=== PATIENT | male | born 1945 | race Caucasian/White ===

== ENCOUNTER 2022-04-23 07:28 | Day surgery (SDC) | payer OTHER ==
[2022-04-22 15:49] LABS: Absolute Lymphocytes (CBC) 2.6 K/uL (0.7-4.9); Hematocrit 42.2 % (39.6-49.0); Lymphocytes % 34.1 % (15.3-44.8); MCV 88.1 fL (80-100); RBC Red Blood Cell Count 4.79 M/uL (4.33-5.43)
[2022-04-22 16:03] LABS: Potassium 4.1 mmol/L (3.5-5.1)
[2022-04-22 16:08] LABS: SARS-CoV-2 Antigen Rapid Res Negative (Negative)
--- NOTE | 2022-04-22 16:09 | RAD REPORT ---
EXAM DESCRIPTION: RAD - Chest Pa And Lat (2 Views) - 04/22/2022 3:47 pm CLINICAL HISTORY: Pre op pending hernia surgery COMPARISON: None TECHNIQUE: Frontal and lateral views of the chest were obtained. FINDINGS: The lungs are clear of a focal mass or consolidation. Interstitial markings are prominent in the lower lung ramos probably baseline fibrosis. Bulla and bleb formation of the upper lung field s evident. Heart size is normal and central vasculature is within normal limits. No pleural effusi on or pneumothorax seen. No acute bony finding noted. No aortic abnormality. IMPRESSION: COPD changes are present as detailed. No acute cardiopulmonary finding.
[2022-04-23] MEDS ORDERED: Ringers Lactate 1,000 ML IV ONE (07:42)
[2022-04-23] MEDS ORDERED: LIDOCAINE 1% MPF 5 ML VIAL ONE (08:33)
[2022-04-23] MEDS ORDERED: CELECOXIB 100 MG CAPSULE ONE (08:33)
[2022-04-23] MEDS ORDERED: ACETAMINOPHEN 500 MG TAB ONE (08:33)
[2022-04-23] MEDS ORDERED: FENTANYL CITR 100 MCG/2 ML ONE (08:33)
[2022-04-23] MEDS ORDERED: propofoL 200 MG/20 ML VIAL IV ONE (08:33)
[2022-04-23] MEDS: CEFAZOLIN SODIUM 1 GM/VIAL ONE ×2 (08:48→08:50)
[2022-04-23] MEDS ORDERED: NS 0.9% VIAL 10 ML ONE (08:48)
[2022-04-23] MEDS ORDERED: KETOROLAC 30 MG/ML INJ ONE (09:00)
[2022-04-23] MEDS ORDERED: dexAMETHasone 10 MG/ML VIAL ONE (09:00)
[2022-04-23] MEDS ORDERED: ONDANSETRON 4 MG/2 ML VIAL ONE (09:31)
--- NOTE | 2022-04-23 10:25 | P.BOP ---
Preoperative diagnosis: incarcerated right inguinal hernia Postoperative diagnosis: same Primary procedure: Open repair of incarcerated right inguinal hernia with mesh Derrick Helper: GARRETT HURT ([employer]) Estimated blood loss: <10cc Specimen: sac Findings: viable small bowel and omentum Anesthesia: General Complications: None Drain(s): Other (medium mesh plug and sheet) Transferred to: Recovery Room Condition: Good
[2022-04-23 11:18] VITALS: BP 140/80
[2022-04-23 11:42] VITALS: TEMP 97.5; O2SAT 100
--- NOTE | 2022-04-23 15:33 | OP ---
Date of Procedure: 04/23/2022 Surgeon: Jayson Rdz MD Socket Puller: OPAL Arevalo. Preoperative Diagnosis: Incarcerated right inguinal hernia. Postoperative Diagnosis: Incarcerated right inguinal hernia. Procedure: Open repair of tender incarcerated right inguinal hernia with mesh. Estimated Blood Loss: Less than 10 mL. Specimen: Hernia sac. Findings: Viable small bowel and omentum carefully reduced back into the abdominal cavity. Anesthesia: General plus local. Implant: Medium mesh plug and sheath. Indication: This is the case of a male, who comes to us with above diagnoses. Fully explained the b enefits, alternatives, and risks of open repair of incarcerated right inguinal hernia with mesh, whic h include, but not limited to infection, bleeding, damage to adjacent structures, anesthesia complica tion, recurrence, NV, and even . He also understands this may not relieve any symptoms. He michael ht need more than one surgical intervention. He understands that we will be using mesh in that area and the pros and cons of mesh placement were discussed with the patient and all the questions were an swered to his satisfaction. Procedure In Detail: The patient was brought to the operating room, placed in supine position. Anes thesia was done without complication. A time-out was called. Abdomen and inguinal region were prepp ed and draped in the usual sterile fashion. Incision was made in the inguinal region. Incision was carried down to Jassi fascia, which was opened under direct vision. Then, we found external oblique aponeurosis that was opened in the direction of its fibers to connect to the superficial inguinal ri ng. Ilioinguinal nerve and iliohypogastric nerve were carefully identified, protected behind the ext ernal oblique aponeurosis. [place] was placed around the spermatic cord. We noticed the patient to have an indirect sac that was carefully dissected away from the spermatic cord. We opened the hernia sac. We noticed there was omentum and small bowel still viable. After removing some adhesions, the y went back without a problem. The hernia sac was twisted and suture ligated twice with 2-0 Prolene. At that moment, I placed a mesh plug over that area and secured that in place with VersaTack in the deep inguinal ring. A mesh sheath was placed in the floor of the canal securing that to the pubic t ubercle, shelving edge of inguinal ligament and transversalis fascia, and the tail looped around the spermatic cord without strangulation. The area was irrigated. No bleeding. The ilioinguinal nerve and iliohypogastric nerve were placed back into the inguinal canal. The superficial inguinal ring wa s reconstructed with Prolene and then we closed the external oblique aponeurosis with Prolene to bobby johnston and we made sure the nerves were not included. Jassi was closed with 3-0 chromic after irri gation and suction and local anesthetic and the skin was approximated with yasmin. Sponge count, in strument counts correct. The patient tolerated the procedure well. The patient was sent to recovery in stable condition. At the end of the case, testicles are within the scrotum. DAGO/JULIO Voice ID: [id number] Report ID: [id number]
--- NOTE | 2022-04-23 15:33 | DS ---
Date of Discharge: 04/23/2022 Diagnosis: Incarcerated right inguinal hernia. Procedure: Open repair of incarcerated right inguinal hernia with mesh. Disposition: Home. Activity: As tolerated. No heavy lifting. Plan: Follow up in my office in 1 week. Call for appointment at [phone]. Cold compress to the rig ht inguinal region for 24 hours. No heavy lifting more than 20 pounds. Medications: See orders. DAGO/JULIO Voice ID: [id number] Report ID: [id number]
--- NOTE | 2022-04-23 16:31 | EKG ---
Test Date: 2022-04-22 Test Time: 15:33:15 Semiconductor Processor: JASMYNE MEASUREMENT RESULTS: Intervals: Rate: 80 [place]: 176 QRSD: 82 QT: 376 QTc: 433 [place]: P: 38 [place]: 176 QRS: -21 T: 33 INTERPRETIVE STATEMENTS: Normal sinus rhythm Anteroseptal infarct, age undetermined Abnormal ECG No previous ECG available for comparison Electronically Signed On 04-23-22 16:30:27 CDT by Drake Gallo
== END 2022-04-23 11:33 | disposition home or self-care (01) ==
LOC: OR 07:28
PROVIDERS: ATTEND Surgery
PROC: 0YU50JZ Supplement Right Inguinal Region with Synthetic Substitute, Open Approach (ICD-10-PCS; principal; 2022-04-23 09:30)
DX: K40.30 Unilateral inguinal hernia, with obstruction, without gangrene, not specified as recurrent (principal); Z20.822 Contact with and (suspected) exposure to COVID-19
CPT/HCPCS: 93005; 85025; 80048; 36415; 88302; 71046; 87811; 49507; J2704; J3010; J1100; J7120; J2405; J0690